=== PATIENT | female | born 1955 | race Two or more races ===

== ENCOUNTER 2017-01-20 11:56 | Emergency (ER) | payer OTHER ==
[~2017-01-20] VITALS: Ht 165.1 cm; Wt 58.0 kg
[2017-01-20 12:04] VITALS: Ht 165.1 cm; Wt 58.0 kg
[2017-01-20 13:42] LABS: URINE BLOOD (Dip) POC 2+ (NEGATIVE)
--- NOTE | 2017-01-20 14:06 | RADRPT ---
PROCEDURE: US Pelvis. CLINICAL INDICATION: Pelvic pain. TECHNIQUE: The pelvis was evaluated with transabdominal and transvaginal sonography in the axial a nd sagittal planes. COMPARISON: No prior study is available for comparison. FINDINGS: Uterus: 5.5 x 2.7 x 4.0 cm. Endometrium: 5.0 mm. A small amount of fluid is present in the endometrial canal. Right ovary: Not visualized. Left ovary: 2.1 x 1.1 x 1.3 cm. Uterine masses: None. Ovarian masses: Right ovary is not visualized. Left ovary appears normal. Color Doppler and pulsed Doppler sonography demonstrate normal flow to the left ovary. Other pelvic masses: None. Free fluid: None. IMPRESSION: 1. Small amount of fluid in the endometrial canal. Probably benign. 2. Right ovary not visualized. 3. Otherwise normal pelvic ultrasound. RPTAT: QQ .Brandin Rand MD, MD Date Time Electronically viewed and signed by .Brandin Rand MD, on 01/20/2017 14:06 .R/
--- NOTE | 2017-01-20 14:12 | RADRPT ---
PROCEDURE: XR Lumbar Spine. CLINICAL INDICATION: Trauma due to a fall. Back pain. TECHNIQUE: Three views. AP, lateral and cone-down lateral view of the lumbar spine were obtained. COMPARISON: No prior studies are available for comparison. FINDINGS: There is normal stature and alignment of the vertebrae. There is no fracture. There is no lytic or blastic lesion. There are degenerative changes with small osteophytes throughout. There is disk space narrowing at L5-S1. There is hypertrophy of the facet joints at L4-5 and L5-S1. The paravertebral soft tissues are unremarkable. IMPRESSION: 1. Degenerative changes as described above. 2. No acute abnormality. RPTAT: QQ .Brandin Rand MD, MD Date Time Electronically viewed and signed by .Brandin Rand MD, on 01/20/2017 14:11 .R/
[2017-01-20] MEDS ORDERED: NITR-58 PO (15:17)
[2017-01-20 15:21] VITALS: BP 168/85; PULSE 62; RESP 16
--- NOTE | 2017-01-20 15:34 | ERD ---
ER Documentation Chief Complaint Date/Time DATE: 01/20/17 TIME: 15:22 Chief Complaint vag bleed since yesterday HPI Patient is a 61-year-old female who presents to the emergency department for concerns of vaginal bleeding and lower back pain. Patient states her vaginal bleeding started yesterday. Patient reports using 2 liner pads thus far. Patient reports bright red blood. Patient states she stopped having her menstrual period approximately 6 years ago. Patient has not seen an PROFESSOR OF FLORICULTURE for symptoms. Patient does report pain with urination. She denies any frequency or urgency. Patient denies any flank pain or pelvic pain. Patient is a complaining of lower back pain. Patient sustained a fall approximately 3 weeks ago where she slipped backwards and fell onto her back. Patient did get checked at that time and was diagnosed with a fracture of her left wrist. Patient is currently in a cast. Patient states that she did not have xray imaging of her spine done at time of injury. She denies any urinary incontinence , stool incontinence, saddle anesthesia, fever, chills, difficulty ambulating. Patient denies any recent surgeries. ROS All systems reviewed and are negative except as per history of present illness. Medications Home Meds Active Scripts Nitrofurantoin Monohyd Macrocr* (Macrobid*) 100 Mg Capsr, 100 MG PO BID for 5 Days, CAP Prov:KARLEE MONTEMAYOR PA-C 01/20/17 Allergies Allergies: Coded Allergies: No Known Allergy (Unverified , 11/09/14) PMhx/Soc History of Surgery: No Anesthesia Reaction: No Hx Neurological Disorder: No Hx Respiratory Disorders: No Hx Cardiac Disorders: Yes (HTN) Hx Psychiatric Problems: No Hx Miscellaneous Medical Probl: No Hx Alcohol Use: No Hx Substance Use: No Hx Tobacco Use: No Smoking Status: Never smoker FmHx Family History: No diabetes Physical Exam Vitals Vital Signs Date Time Temp Pulse Resp B/P Pulse Ox O2 Delivery O2 Flow Rate FiO2 01/20/17 15:21 62 16 168/85 100 Room Air 01/20/17 12:04 98.1 62 18 166/78 99 Physical Exam GENERAL: Well-developed, well-nourished female. Appears in no acute distress. HEAD: Normocephalic, atraumatic. EYES: Pupils are equally reactive bilaterally. EOMs grossly intact. No conjunctival erythema. NECK: Supple. No meningismus. Normal range of motion of the neck. LUNG: Clear to auscultation bilaterally. No rhonchi, wheezing, rales or coarse breath sounds. HEART: Regular rate and rhythm. No murmurs, rubs or gallops. ABDOMEN: Soft, nontender, and nondistended. Positive bowel sounds in all four quadrants. No rebound tenderness, no guarding. (-) McBurney's point tenderness. No CVA tenderness. BACK: No midline tenderness. Tender to palpation of the lumbar. Negative straight leg raise bilaterally. EXTREMITIES: Equal pulses bilaterally. No peripheral clubbing, cyanosis or edema. No unilateral leg swelling. NEUROLOGIC: Alert and oriented. Moving all four extremities without any difficulty. Normal speech. Steady gait. SKIN: Normal color. Warm and dry. No rashes or lesions. Results 24 hrs Laboratory Tests Test 01/20/17 13:46 Bedside Urine pH (LAB) 6.0 Bedside Urine Protein (LAB) Trace Bedside Urine Glucose (UA) Negative Bedside Urine Ketones (LAB) Negative Bedside Urine Blood 2+ Bedside Urine Nitrite (LAB) Negative Bedside Urine Leukocyte Esterase (L 3+ Procedures/MDM ED COURSE: The patient was stable throughout ED course. I kept the patient and/or family informed of laboratory and diagnostic imaging results throughout the ED course. DIAGNOSTIC IMAGING: Read by radiologist. DIAGNOSTIC IMAGING REPORT Patient: JENNY INMAN : 1955 Age: 61 Sex: F MR #: [id number] DOS: 01/20/17 1306 Ordering MD: KARLEE MONTEMAYOR PA-C Location: [facility] Room/Bed: PROCEDURE: XR Lumbar Spine. CLINICAL INDICATION: Trauma due to a fall. Back pain. TECHNIQUE: Three views. AP, lateral and cone-down lateral view of the lumbar spine were obtained. COMPARISON: No prior studies are available for comparison. FINDINGS: There is normal stature and alignment of the vertebrae. There is no fracture. There is no lytic or blastic lesion. There are degenerative changes with small osteophytes throughout. There is disk space narrowing at L5-S1. There is hypertrophy of the facet joints at L4- 5 and L5-S1. The paravertebral soft tissues are unremarkable. IMPRESSION: 1. Degenerative changes as described above. 2. No acute abnormality. RPTAT: QQ .Brandin Rand MD, MD Date Time Electronically viewed and signed by .Brandin Rand MD, MD on 01/20/2017 14:11 .R/ CC: KARLEE MONTEMAYOR PA-C DIAGNOSTIC IMAGING REPORT Patient: JENNY INMAN : 1955 Age: 61 Sex: F MR #: [id number] DOS: 01/20/17 1306 Ordering MD: KARLEE MONTEMAYOR PA-C Location: [facility] Room/Bed: PROCEDURE: US Pelvis. CLINICAL INDICATION: Pelvic pain. TECHNIQUE: The pelvis was evaluated with transabdominal and transvaginal sonography in the axial and sagittal planes. COMPARISON: No prior study is available for comparison. FINDINGS: Uterus: 5.5 x 2.7 x 4.0 cm. Endometrium: 5.0 mm. A small amount of fluid is present in the endometrial canal. Right ovary: Not visualized. Left ovary: 2.1 x 1.1 x 1.3 cm. Uterine masses: None. Ovarian masses: Right ovary is not visualized. Left ovary appears normal. Color Doppler and pulsed Doppler sonography demonstrate normal flow to the left ovary. Other pelvic masses: None. Free fluid: None. IMPRESSION: 1. Small amount of fluid in the endometrial canal. Probably benign. 2. Right ovary not visualized. 3. Otherwise normal pelvic ultrasound. RPTAT: QQ .Brandin Rand MD, MD Date Time Electronically viewed and signed by .Brandin Rand MD, MD on 01/20/2017 14:06 .R/ CC: KARLEE MONTEMAYOR PA-C PROCEDURES: None. MEDICAL DECISION MAKING: This is a 61-year-old female who presents with concerns of vaginal bleeding and lower back pain. Patient does report a fall injury approximately 3 weeks ago. Patient states her vaginal bleeding started yesterday. Patient reports using 2 thin liner pads thus far. Vital signs were reviewed. Patient was afebrile. Patient was hemodynamically stable. Abdominal exam was unremarkable. Urine dip showed 3+ leukocyte esterase and hematuria. Lumbar series showed degenerative changes of the spine. Pelvic ultrasound was unremarkable except for a small amount of fluid in the endometrial canal which is likely benign. I had a long discussion with patient and her daughter about post menopausal vaginal bleeding. Patient and daughter are aware that I am unable to rule out malignancy at this time. Patient was persistent that she be seen by an OBGYN today because it is a "holiday tomorrow." I explained to the patient at length with pulmonology technician present as inspector rag sorting, that her condition was not emergent and that she will need to follow up with an OBGYN on an outpatient basis. Patient was hemodynamically stable and had minimal bleeding. There is no indication for emergent OBGYN consult. OBGYN referral information was provided. At this time, patient's presentation is most consistent with vaginal bleeding of unknown etiology and UTI. Patient's back pain is likely due to lumbar strain and degenerative joint changes. Low suspicion for , fibroid, ovarian cyst , pyelonephritis, nephrolithiasis. Low suspicion for cauda equine syndrome, spinal fractures, epidural abscess, spinal metastases, osteomyelitis, sciatica. Initially patient was prescribed Keflex for her urinary tract infection, however she stated that "penicillin does not work" for her. Patient will be prescribed Macrobid at this time, per her request. Urine culture pending. PRESCRIPTIONS: Macrobid DISCHARGE: At this time, patient is stable for discharge and outpatient management. I had a long discussion with patient and her daughter about vaginal bleeding postmenopausal. Patient is aware and understands that I am unable to rule out any hyperplasia or malignancy at this time. Patient advised to follow-up with an PROFESSOR OF FLORICULTURE in the next 1-2 days. Referral information provided. I have instructed the patient to follow-up with his/her primary care physician in 1-2 days. I have instructed the patient to promptly return to the ER for any new or worsening symptoms including increased pain, swelling, redness, warmth or fever. The patient and/or family expressed understanding of and agreement with this plan. All questions were answered. Home care instructions were provided. Patients blood pressure was elevated (>120/80) but appears stable without evidence of hypertensive emergency, hypertensive urgency or end-organ failure. I had discussion with the patient about the risks of hypertension. I have advised the patient to follow up with his/her primary care physician for outpatient monitoring and treatment for hypertension in 2-3 days. I have instructed the patient to return to the ER for any new or worsening symptoms including chest pain, shortness of breath, headache, blurred vision, confusion, nausea, vomiting or LOC. Departure Diagnosis: Primary Impression: UTI (urinary tract infection) Urinary tract infection type: site unspecified Hematuria presence: with hematuria Qualified Code: N39.0 - Urinary tract infection with hematuria, site unspecified Additional Impression: Vaginal bleeding Condition: Stable Patient Instructions: Understanding Urinary Tract Infections (UTIs) Referrals: [facility] YOU HAVE RECEIVED A MEDICAL SCREENING EXAM AND THE RESULTS INDICATE THAT YOU DO NOT HAVE A CONDITION THAT REQUIRES URGENT TREATMENT IN THE EMERGENCY DEPARTMENT. FURTHER EVALUATION AND TREATMENT OF YOUR CONDITION CAN WAIT UNTIL YOU ARE SEEN IN YOUR DOCTORS OFFICE WITHIN THE NEXT 1-2 DAYS. IT IS YOUR RESPONSIBILITY TO MAKE AN APPOINTMENT FOR FOLOW-UP CARE. IF YOU HAVE A PRIMARY DOCTOR --you should call your primary doctor and schedule an appointment IF YOU DO NOT HAVE A PRIMARY DOCTOR YOU CAN CALL OUR PHYSICIAN REFERRAL HOTLINE AT IF YOU CAN NOT AFFORD TO SEE A PHYSICIAN YOU CAN CHOSE FROM THE FOLLOWING [facility] [address] [facility]. [facility] [address] [facility] [facility] [address] [facility] [facility] [address] [facility] [facility] [address] [facility]. [facility]. [address] [facility]. [facility] YOU HAVE RECEIVED A MEDICAL SCREENING EXAM AND THE RESULTS INDICATE THAT YOU DO NOT HAVE A CONDITION THAT REQUIRES URGENT TREATMENT IN THE EMERGENCY DEPARTMENT. FURTHER EVALUATION AND TREATMENT OF YOUR CONDITION CAN WAIT UNTIL YOU ARE SEEN IN YOUR DOCTORS OFFICE WITHIN THE NEXT 1-2 DAYS. IT IS YOUR RESPONSIBILITY TO MAKE AN APPOINTMENT FOR FOLOW-UP CARE. IF YOU HAVE A PRIMARY DOCTOR --you should call your primary doctor and schedule and appointment IF YOU DO NOT HAVE A PRIMARY DOCTOR YOU CAN CALL OUR PHYSICIAN REFERRAL HOTLINE AT . IF YOU CAN NOT AFFORD TO SEE A PHYSICIAN YOU CAN CHOSE FROM THE FOLLOWING [facility]: [facility] [address] [place] [address] [facility] [address] [place] [address] [facility] + [facility] [address] [place] [address] Additional Instructions: Call your primary care doctor TOMORROW for an appointment during the next 1-2 days.See the doctor sooner or return here if your condition worsens before your appointment time. Unable to rule out endometrial malignancy at this time. You will need to follow -up with your PROFESSOR OF FLORICULTURE in the next 1-2 days. See referral information. KARLEE MONTEMAYOR PA-C Jan 20, 2017 15:33
== END 2017-01-20 15:38 | disposition home or self-care (01) ==
LOC: FTE 11:56
DX: N39.0 Urinary tract infection, site not specified (principal); I10 Essential (primary) hypertension
CPT/HCPCS: 72100; 76830; 76856; 81003; 87086